=== PATIENT | male | born 1950 | race Caucasian/White ===

== ENCOUNTER 2017-01-28 15:11 | Outpatient (CLI) | payer OTHER ==
[2016-01-03 21:41] VITALS: BP 109/69
== END 2017-01-28 15:12 ==
LOC: LAB 15:11
PROVIDERS: ATTEND Nurse Practitioner Family
DX: M81.0 Age-related osteoporosis without current pathological fracture (principal)
CPT/HCPCS: 36415; 82306; 83970; 84403

== ENCOUNTER 2017-04-29 11:31 | Outpatient (CLI) | payer OTHER ==
[2016-01-03 21:41] VITALS: BP 109/69
== END 2017-04-29 11:32 ==
LOC: CARD 11:31
PROVIDERS: ATTEND Internal Medicine Cardiovascular Disease
DX: I42.9 Cardiomyopathy, unspecified (principal); Z86.79 Personal history of other diseases of the circulatory system; Z95.0 Presence of cardiac pacemaker; Z72.0 Tobacco use; J43.9 Emphysema, unspecified; Z79.899 Other long term (current) drug therapy
CPT/HCPCS: G0463

== ENCOUNTER 2017-10-24 14:08 | Emergency (ER) | payer MEDICARE, OTHER ==
--- NOTE | 2017-10-24 14:10 | ED Physician Documentation ---
General Adult - HISTORIAN Historian: patient - HPI Stated Complaint: cough x 5 days Chief Complaint: Cough/ Upper Respiratory Onset: days ago (5) Timing: still present Severity: mild Further Comments: yes (He states 5 days ago he notes nasal drainge, fever, chills, cough (productive) and fatigue . He has not taken any OTC meds . He denies any sick contacts. No edema. No other complaints) Last known Well Code/Unknown Code: Unknown - ROS CONST: fever EYES/ENT: nasal drainage CVS/RESP: shortness of breath, cough GI/: none MS/SKIN/LYMPH: none NEURO/PSYCH: denies: headache, dizziness - PAST HX Past History: hypertension, other (GERD, CAD, ) Surgeries/Procedures: none Immunizations: UTD Allergies/Adverse Reactions: Allergies Allergy/AdvReac Type Severity Reaction Status Date / Time No Known Drug Allergies Allergy Verified 01/03/16 21:08 Home Medications: Ambulatory Orders Medication Instructions Recorded Amiodarone HCl [Pacerone] 200 mg PO DAILY 01/03/16 Carvedilol [Coreg] 3.125 mg PO DAILY 01/03/16 Diclofenac Sodium [Voltaren] 50 mg PO BID 10/24/17 Lisinopril [Lisinopril] 5 mg PO DAILY 10/24/17 Omeprazole [Omeprazole] 20 mg PO DAILY 10/24/17 - SOCIAL HX Smoking History: cigarettes Alcohol Use: none Drug Use: none - FAMILY HX Family History: No - VITAL SIGNS Vital Signs: Vital Signs Temp Pulse Resp BP Pulse Ox 109/69 01/03/16 21:39 - REVIEWED ASSESSMENTS Nursing Assessment Reviewed: Yes Vitals Reviewed: Yes ED Results Lab/Radiology - Lab Results Lab Results: PA and lateral chest Clinical history: CXR, COUGH X5 DAYS, PT STATES HX OF COPD AND SMOKER Findings: Examination of the chest in PA and lateral views demonstrate some lungs to be hyperinflated but clear. Cardiac silhouette is within normal limits and the aorta is atherosclerotic. Bipolar pacemaker overlies left hemithorax. Impression: 1. Hyperinflation. 2. No active disease. Electronically signed on October 24, 2017 3:04:20 PM CDT by: Yousif Loja General Adult Physical Exam - PHYSICAL EXAM GENERAL APPEARANCE: no distress EENT: eye inspection normal, ENT inspection normal NECK: normal inspection RESPIRATORY: no resp distress, chest non-tender, wheezes CVS: reg rate & rhythm, heart sounds normal, equal pulses, no murmur ABDOMEN: soft, no distension BACK: normal inspection SKIN: warm/dry, normal color EXTREMITIES: non-tender, normal range of motion, no evidence of injury, no edema NEURO: oriented X3, CN's nml as tested, motor nml, sensation nml, mood/affect nml, cognition normal Discharge Clincal Impression: Bronchitis Referrals: Hardik Malone, [REFERRING] - 2 Days Comments: 1. Azithromycin - 250 mg (zpack) take as directed 2. Medrol Dose pack 4 mg - take as directed 3. ProAir 90 mcg Inhale 2 puffs by mouth every 4-6 hours as needed for cough 4. Increase fluids 5. rest 6. Follow up with PCP in 2-4 days 7. Return to ER for any concerns, increased shortness of air, fever, or other concerns Condition: Stable Disposition: 01 HOME, SELF-CARE Decision to Admit: NO Date of Decison to Admit: 10/24/17 Decision Time: 15:09
[2017-10-24 14:48] LABS: BASOPHILS % 0.7 (0.0-1.5); EOSINOPHILS % 3.5 % (0.0-6.8); MEAN CORPUSCULAR HEMOGLOBIN 33.6 pg (28.0-34.0); MEAN CORPUSCULAR VOLUME 103.7 fl (80.0-100.0); MONOCYTES % 6.4 % (0.0-11.0)
[2017-10-24 15:02] LABS: eGFR (African) > 60; eGFR (Non-African) > 60
[2017-10-24 15:16] VITALS: BP 110/68
--- NOTE | 2017-10-24 17:39 | Diagnostic Imaging Report ---
LUCINA ADLER [facility] [address] [facility] [address] [place], [place]. [address] Report Submission Date: October 24, 2017 3:04:20 PM CDT Patient Study Name: SARAH DOOLEY Date: October 24, 2017 2:40:11 PM CDT Modality Type: DX Gender: M Description: CHEST : 48 [facility]: [facility] Physician: LUCINA ADLER PA and lateral chest Clinical history: CXR, COUGH X5 DAYS, PT STATES HX OF COPD AND SMOKER Findings: Examination of the chest in PA and lateral views demonstrate some lungs to be hyperinflated but clear. Cardiac silhouette is within normal limits and the aorta is atherosclerotic. Bipolar pacemaker overlies left hemithorax. Impression: 1. Hyperinflation. 2. No active disease. Electronically signed on October 24, 2017 3:04:20 PM CDT by: Yousif SKELTON
== END 2017-10-24 15:15 | disposition home or self-care (01) ==
LOC: ED 14:08
DX: J40 Bronchitis, not specified as acute or chronic (principal)
CPT/HCPCS: 36415; 71046; 80053; 85025; 99284

== ENCOUNTER 2017-12-09 10:34 | Outpatient (CLI) | payer MEDICARE, OTHER | END 2017-12-09 10:36 | LOC: CARD 10:34 | PROVIDERS: ATTEND Internal Medicine Cardiovascular Disease | DX: I42.9 Cardiomyopathy, unspecified (principal); I48.91 Unspecified atrial fibrillation; Z95.0 Presence of cardiac pacemaker; Z72.0 Tobacco use; J43.9 Emphysema, unspecified; Z79.899 Other long term (current) drug therapy; Z86.79 Personal history of other diseases of the circulatory system | CPT/HCPCS: G0463 ==

== ENCOUNTER 2018-02-24 13:53 | Outpatient (CLI) | payer MEDICARE, OTHER | END 2018-02-24 13:55 | LOC: CARD 13:53 | PROVIDERS: ATTEND Internal Medicine Cardiovascular Disease | DX: I42.9 Cardiomyopathy, unspecified (principal); Z86.79 Personal history of other diseases of the circulatory system; Z95.0 Presence of cardiac pacemaker; Z72.0 Tobacco use; J43.9 Emphysema, unspecified | CPT/HCPCS: G0463 ==

== ENCOUNTER 2018-04-24 23:13 | Inpatient (IN) | payer MEDICARE, OTHER ==
[2018-04-24] MEDS ORDERED: IPRATROPIUM/ALBUTEROL SULFATE 3 ML AMPUL.NEB NEB ONE (23:25)
--- NOTE | 2018-04-24 23:32 | ED Physician Documentation ---
Dyspnea - HISTORIAN Historian: patient - HPI Stated Complaint: soa Chief Complaint: Dyspnea Additional Information: Patient presents to ED with a 2 day history of increasing shortness of breath and cough with yellow/green sputum production. Patient wears oxygen (2 liters) at night. He has not had to wear his oxygen during the day. Patient reports some substernal chest pain when he gets really short of breath. He has been u sing his inhalers more than usual with little relief. Denies fever, chills, night sweats or syncope. Upon arrival to ED SaO2 is 86% on room air. Patient has a history of bradycardia (s/p pacer), cardiomyopathy LVEF 25%, CAD, COPD, cigarette use. Patient reports having Cardiac cath about 2 weeks ago showing nonoccluisve CAD. Onset: days ago (2) Duration: continues in ED Initiating Event: upper respiratory illness Severity: moderate Exacerbated By: coughing Associated Symptoms: chest pain, productive cough. denies: chills, fever, calf pain - ROS CONST: no problems EYES/ENT: denies: sore throat, nasal drainage GI/: denies: abdominal pain, vomiting, nausea, diarrhea NEURO/PSYCH: denies: headache MS/SKIN/LYMPH: denies: muscle aches - PAST HX Lung Disease: COPD Cardiac Disease: CHF (LVEF 25%), CAD, other (pacemaker) PE Risk Factors: hypertension. denies: hx of PE Surgeries/Procedures: denies: prior intubation Allergies/Adverse Reactions: Allergies Allergy/AdvReac Type Severity Reaction Status Date / Time No Known Drug Allergies Allergy Verified 04/24/18 23:37 Home Medications: Ambulatory Orders Medication Instructions Recorded Carvedilol [Coreg] 3.125 mg PO DAILY 01/03/16 Diclofenac Sodium [Voltaren] 50 mg PO BID 10/24/17 Lisinopril 5 mg PO DAILY 10/24/17 Omeprazole 20 mg PO DAILY 10/24/17 Ipratropium/Albuterol Sulfate 3 ml IH TID #90 ampul.neb 04/25/18 [Duoneb] Nebulizer [Aeroeclipse II] 1 each MC DAILY #1 each 04/25/18 - SOCIAL HX Smoking History: cigarettes, less than 1 pack/day Alcohol Use: none Drug Use: none - FAMILY HX Family History: none - VITAL SIGNS Vital Signs: Vital Signs Temp Pulse Resp BP Pulse Ox 110/68 10/24/17 15:15 - REVIEWED ASSESSMENTS Nursing Assessment Reviewed: Yes Vitals Reviewed: Yes Progress - Progress Progress: 015 Discussed CXR results and elevated WBC with patient. Patient agrees to admission. - EKG/XRAY/CT Comments: sinus rhythm 99 bpm left bbb ED Results Lab/Radiology - Radiology Radiology Impressions: Portable chest Clinical history: Shortness of breath for 2 days. Findings: Examination of the chest in single portable AP view with comparison to examination of 10/24/2017 demonstrates lungs to be hyperinflated but clear. Bipolar pacemaker overlies left hemithorax. Central pulmonary arteries are prominent suggesting pulmonary arterial hypertension. Impression: 1. Emphysema. 2. Prominence of central pulmonary arteries suggesting pulmonary arterial hypertension. Electronically signed on Apr 24, 2018 11:58:33 PM CONSERVATION EDUCATOR by: Yousif Loja My interpretation is bilateral pneumonia, especially with elevated WBC and copious green sputum production. - Orders Orders: ED Orders Category Date Time Status Place IV Lock 1T Care 04/24/18 23:24 Ordered CHEST 1VIEW [RAD] Stat Exams 04/24/18 Ordered CBC/PLATELET/DIFF Routine Lab 04/24/18 Ordered CMP Routine Lab 04/24/18 Ordered NT-proBNP Stat Lab 04/24/18 Ordered TROPONIN I (cTnI) Stat Lab 04/24/18 Ordered Ipratropium/Albuterol Sulfate [Duoneb] Med 04/24/18 23:25 Once 3 ml NEB NOW ONE EKG WITH COMPARISON Stat Ther 04/24/18 Ordered Dyspnea Physical Exam - EXAM General Appearance: no acute distress, alert EENT: JULIAN Neck: No: lymphadenopathy Respiratory: no resp. distress, speaks full sentences, other (markedly diminished breath sounds bilaterally) CVS: reg. rate & rhythm, no murmur Abdomen: non-tender. No: tenderness Skin: color nml, no rash Extremities: non-tender, no edema Neuro/Psych: oriented x3, motor nml Discharge Clincal Impression: Acute respiratory failure with hypoxia Bilateral pneumonia Qualifiers: Pneumonia type: due to unspecified organism Lung location: lower lobe of lung Qualified Code(s): J18.1 - Lobar pneumonia, unspecified organism Prescriptions: Ipratropium/Albuterol Sulfate [Duoneb] 3 ml IH TID #90 ampul.neb Nebulizer [Aeroeclipse II] 1 each MC DAILY #1 each Referrals: Neeta Carr PRN [Primary Care Provider] - 2 Days Condition: Stable Disposition: ADMITTED INPATIENT Decision to Admit: [id number] Date of Decison to Admit: 04/25/18 Decision Time: 00:35
[2018-04-24] MEDS ORDERED: methylPREDNISolone SOD SUCC 125 MG/2 ML VIAL IVP ONE (23:37)
[2018-04-24] MEDS ORDERED: cefTRIAXone SODIUM 1 GM in 0.9 % SODIUM CHLORIDE 100 ML IV ONE (23:50)
[2018-04-25 00:03] LABS: MEAN CORPUSCULAR HEMOGLOBIN 34.2 pg (28.0-34.0)
[2018-04-25 00:04] LABS: BASOPHILS % 0.8 (0.0-1.5); EOSINOPHILS % 2.1 % (0.0-6.8); MONOCYTES % 9.2 % (0.0-11.0); NEUTROPHILS # 13.8 # k/uL (1.4-7.7)
[2018-04-25 00:05] LABS: eGFR (Non-African) > 60
[2018-04-25] MEDS ORDERED: cefTRIAXone SODIUM 1 GM VIAL ONE ×2 (00:20→20:42)
[2018-04-25] MEDS ORDERED: 0.9 % SODIUM CHLORIDE 100 ML IV ONE (00:20)
--- NOTE | 2018-04-25 00:27 | Diagnostic Imaging Report ---
CRISTINA ALVAREZ [facility] [address] [facility] [address] [place] [address]. [id number] Report Submission Date: Apr 24, 2018 11:58:33 PM ASSISTANT DEAN Patient Study Name: SARAH DOOLEY Date: Apr 24, 2018 11:33:59 PM ASSISTANT DEAN Modality Type: DX Gender: M Description: CHEST : 48 Institution: [facility] Physician: CRISTINA ALVAREZ Portable chest Clinical history: Shortness of breath for 2 days. Findings: Examination of the chest in single portable AP view with comparison to examination of 10/24/2017 demonstrates lungs to be hyperinflated but clear. Bipolar pacemaker overlies left hemithorax. Central pulmonary arteries are prominent suggesting pulmonary arterial hypertension. Impression: 1. Emphysema. 2. Prominence of central pulmonary arteries suggesting pulmonary arterial hypertension. Electronically signed on Apr 24, 2018 11:58:33 PM ASSISTANT DEAN by: Yousif SKELTON
[2018-04-25] MEDS ORDERED: HYDROcodone /APAP 5/325 1 EACH TABLET PO PRN (00:57)
[2018-04-25] MEDS ORDERED: ONDANSETRON HCL 4 MG TAB.RAPDIS PO PRN (00:59)
[2018-04-25] MEDS ORDERED: cefTRIAXone SODIUM 1 GM in 0.9 % SODIUM CHLORIDE 50 ML IV SCH (01:00)
[2018-04-25] MEDS ORDERED: MAG HYDROX/ALUMINUM HYD/SIMETH 30 ML UDC PO PRN (01:01)
[2018-04-25] MEDS ORDERED: DOCUSATE SODIUM 100 MG CAPSULE PO PRN (01:03)
[2018-04-25] MEDS ORDERED: ENOXAPARIN SODIUM 30 MG/0.3 ML DISP.SYRIN SQ ONE ×2 (02:24→20:41)
[2018-04-25] MEDS ORDERED: AZITHROMYCIN 250 MG TABLET PO ONE ×2 (02:24→15:59)
[2018-04-25] MEDS: ENOXAPARIN SODIUM 30 MG/0.3 ML DISP.SYRIN SQ SCH (02:29)
[2018-04-25] MEDS: AZITHROMYCIN 250 MG TABLET PO SCH ×2 (02:29→16:02)
[2018-04-25 04:03] VITALS: BMI 25.4
[2018-04-25] MEDS ORDERED: methylPREDNISolone SOD SUCC 40 MG/ML VIAL IVP SCH (05:00)
[2018-04-25] MEDS ORDERED: PANTOPRAZOLE SODIUM 40 MG TABLET.DR ONE ×2 (06:19→20:41)
[2018-04-25] MEDS: PANTOPRAZOLE SODIUM 40 MG TABLET.DR PO SCH (06:21)
[2018-04-25] MEDS ORDERED: IPRATROPIUM/ALBUTEROL SULFATE 3 ML AMPUL.NEB NEB ONE ×3 (07:38→20:42)
[2018-04-25] MEDS ORDERED: methylPREDNISolone SOD SUCC 40 MG/ML VIAL ONE ×3 (07:38→20:42)
[2018-04-25] MEDS ORDERED: CARVEDILOL 6.25 MG TABLET PO ONE ×2 (07:38→20:42)
[2018-04-25] MEDS ORDERED: LISINOPRIL 5 MG TABLET ONE (07:38)
--- NOTE | 2018-04-25 07:56 | History and Physical Report ---
History of Present Illnes - History of Present Illness Reason for Visit: dyspnea History of Present Illness: 67-year-old white male with a known history of COPD and congestive heart failure. Patient states over the last 45 days he is been having increasing shortness of breath dyspnea. Patient is normally on oxygen at nighttime. Patient had started to have to uses oxygen more frequently. Patient developed a productive cough up some green phlegm. No home offices was noted. Patient is having increase dyspnea with exertion subsequently came to the emergency room for evaluation. In the emergency room patient was found to have bilateral pneumonia with an elevated white count of 17,000. Patient was noted to be hypoxic with and SaO2 in the mid 80s. Patient stated he is had pneumonia on numerous occasions previously.Due to his comorbidities of congestive heart failure and is COPD patient was subsequently admitted to the hospital for further care and evaluation. - Past Medical History Cardiac: CHF. denies: HTN Pulmonary: COPD - Past Surgical History Past Surgical History: Other (right hand surgeries due to trauma, pacemaker placement) - Past Family History Mother Family History: CVA, (70s) - Past Social History Smoke: # pack years (90), <1 pack per day (2-4 cirgarette/d) Alcohol: Occassional (shot several times a week) Drugs: None Lives: Alone - Health Maintenance Health Maintenance: Pneumococcal Vaccine. denies: Influenza Vaccine Influenza Vaccine: No Pneumonia Vaccine: Yes Resuscitation Status: Resusciation Status Resuscitation Status Full Code Review of Systems - Review of Systems Constitutional: Fever, Chills, Sweats Eyes: negative: pain, vision change ENT: negative: Ear Pain, Ear Discharge, Nose Pain, Nose Discharge, Nose Congestion, Throat Swelling Respiratory: Shortness of Breath, SOB with Excertion, Sputum (green). negative: Hemoptysis Cardiovascular: negative: Chest Pain, Palpitations, Orthopnea, Edema Gastrointestinal: negative: Nausea, Vomiting, Abdominal Pain, Diarrhea, Constipation, Melena, Hematochezia Genitourinary: negative: Dysuria, Frequency, Hematuria Musculoskeletal: negative: Neck Pain, Shoulder Pain, Back Pain Skin: negative: Rash Neurological: negative: Weakness, Numbness, Incoordination, Confusion - Medications/Allergies Allergies/Adverse Reactions: Allergies Allergy/AdvReac Type Severity Reaction Status Date / Time No Known Drug Allergies Allergy Verified 04/24/18 23:37 Current Inpatient Medications: Current Inpatient Medications Albuterol/Ipratropium (Duoneb) 3 ml NEB QID [facility] Azithromycin (Zithromax) 500 mg PO DAILY [facility] Stop: 05/09/18 00:52 Last Admin: 04/25/18 02:29 Dose: 500 mg Carvedilol (Coreg) 3.15 mg PO BID [facility] Docusate Sodium (Colace) 100 mg PO DAILY PRN PRN Reason: Constipation Enoxaparin Sodium (Lovenox) 30 mg SQ QD [facility] Stop: 05/08/18 01:01 Last Admin: 04/25/18 02:29 Dose: 30 mg Ceftriaxone Sodium 1 gm/ (Sodium Chloride) 50 mls @ 100 mls/hr IV Q24H [facility] Lisinopril (Prinivil) 5 mg PO DAILY [facility] Methylprednisolone Sodium Succinate (Solu-Medrol) 60 mg IVP Q8 [facility] Ondansetron HCl (Zofran Odt) 4 mg PO Q8H PRN PRN Reason: Nausea / Vomiting Pantoprazole Sodium (Protonix) 40 mg PO 0700 [facility] Last Admin: 04/25/18 06:21 Dose: 40 mg Sodium Chloride (Normal Saline Flush) 3 ml IV BID [facility] Exam - Exam Vital Signs: Vital Signs (72 hours) 04/24/18 04/25/18 04/25/18 23:13 00:48 01:07 Temperature 98.5 F 100.2 F H Pulse Rate [ 88 100 H 102 H Pulse ox] Respiratory 22 20 20 Rate Blood Pressure 115/63 133/72 106/59 [Left Arm] Blood Pressure [Right Arm] O2 Sat by Pulse 86 L 94 Oximetry 04/25/18 04/25/18 02:00 06:00 Temperature 97.4 F L 97.5 F L Pulse Rate [ 100 H 78 Pulse ox] Respiratory 20 20 Rate Blood Pressure 133/72 110/62 [Left Arm] Blood Pressure 110/68 [Right Arm] O2 Sat by Pulse 94 97 Oximetry General: Alert, Oriented to Person, Oriented to Place, Oriented to Time, Cooperative HEENT: Atraumatic, PERRLA, EOMI, Mouth Mucous membr. moist/[place], Nose Mucous membr. moist/[place], Hearing Grossly Normal Neck: Normal Range of Motion Carotids: WNL Lungs: Normal air movement, Speaks full Sentences, Respiratory Distress, Rales (right posterior) Cardiovascular: Regular rate, Normal S1, Normal S2, No murmurs Abdomen: Normal bowel sounds, Soft, No tenderness, No hepatospenomegaly, No masses Integumentary: Normal, [place], Warm, Dry Extremities: No clubbing, No cyanosis, No edema, Normal pulses, No tenderness/swelling Neurological: Normal gait, Normal speech, Strength Equal Bilat, Normal tone, Sensation intact, Cranial nerves 3-12 NL, Reflexes 2+ Psych/Mental Status: Mental status NL, Mood NL, Appropriate Affect, Intact Judgment - Laboratory Results Laboratory Results: Laboratory Results 04/24/18 04/24/18 04/24/18 23:35 23:35 23:35 WBC 17.20 H RBC 4.07 Hgb 13.9 Hct 40.8 MCV 100.0 MCH 34.2 H MCHC 34.1 RDW 13.2 Plt Count 146 Neut % (Auto) 80.5 H Lymph % (Auto) 7.4 L [place] % (Auto) 9.2 Eos % (Auto) 2.1 Baso % (Auto) 0.8 Neut # (Auto) 13.8 H Lymph # (Auto) 1.3 [place] # (Auto) 1.6 H Eos # (Auto) 0.4 Baso # (Auto) 0.1 Sodium 142 Potassium 3.9 Chloride 106 Carbon Dioxide 28 BUN 22 H Creatinine 0.70 Est GFR ( Amer) > 60 Est GFR (Non-Af Amer) > 60 Glucose 112 H Calcium 8.3 L Total Bilirubin 0.8 AST 23 ALT 41 Alkaline Phosphatase 86 Troponin I < 0.03 L NT-Pro-B Natriuret Pep 224.5 H Total Protein 6.7 Albumin 3.6 Assessment/Plan - Assessment/Plan (1) Bilateral pneumonia Status: Acute Qualifiers: Pneumonia type: due to unspecified organism Lung location: lower lobe of lung Qualified Code(s): J18.1 - Lobar pneumonia, unspecified organism (2) COPD exacerbation Status: Chronic (3) CHF (congestive heart failure) Status: Chronic Qualifiers: Heart failure type: unspecified Heart failure chronicity: chronic Qualified Code(s): I50.9 - Heart failure, unspecified VTE Assessment - RISK FACTOR SCORE VTE RISK FACTOR SCORES: AGE OVER 60 YEARS, ACUTE RESPIRATORY FAILURE/SEVERE COPD, ANTICIPATED BED CONFINEMENT OR IMMOBILIZATION > 24 HOURS - RISK VTE HIGH RISK: SCORE OF 3-4 (RISK PROXIMAL DVT 4-8%) PROPHYLAXIS NEEDED
[2018-04-25] MEDS: methylPREDNISolone SOD SUCC 40 MG/ML VIAL IVP SCH ×3 (08:10→20:53)
[2018-04-25] MEDS: CARVEDILOL 6.25 MG TABLET PO SCH ×2 (08:16→20:55)
[2018-04-25] MEDS: LISINOPRIL 5 MG TABLET PO SCH (08:17)
[2018-04-25] MEDS: SALINE FLUSH 10 ML DISP.SYRIN IV SCH ×2 (08:20→20:55)
[2018-04-25] MEDS: IPRATROPIUM/ALBUTEROL SULFATE 3 ML AMPUL.NEB NEB SCH ×4 (08:23→21:22)
--- NOTE | 2018-04-25 08:42 | Diagnostic Imaging Report ---
CRISTINA ALVAREZ [facility] [address] [facility] [address] [address] Report Submission Date: Apr 25, 2018 7:21:15 AM HAND SCREEN PRINTER Patient Study Name: SARAH DOOLEY Date: Apr 25, 2018 6:50:02 AM HAND SCREEN PRINTER Modality Type: DX Gender: M Description: CHEST : 48 Institution: [facility] Physician: CRISTINA ALVAREZ PA and lateral chest CLINICAL HISTORY: Shortness of breath for 2 days. FINDINGS: Examination of the chest in PA and lateral views with comparison to examination from the previous day demonstrates left lower lobe infiltrate in the retrocardiac region. Cardiovascular and mediastinal silhouettes are stable. Bipolar pacemaker overlies the left hemithorax. Monitor leads superimpose the chest. IMPRESSION: Retrocardiac infiltrate the left base seen posteriorly on the lateral view. Aortic atherosclerosis and mild cardiomegaly. Prominence of the central pulmonary arteries. Electronically signed on Apr 25, 2018 7:21:15 AM HAND SCREEN PRINTER by: Yousif SKELTON
[2018-04-25] MEDS ORDERED: 0.9 % SODIUM CHLORIDE 50 ML IV ONE (20:43)
[2018-04-25 23:36] LABS: MEAN CORPUSCULAR HEMOGLOBIN 33.3 pg (28.0-34.0)
[2018-04-25 23:37] LABS: BASOPHILS % 0.5 (0.0-1.5); EOSINOPHILS % 1.2 % (0.0-6.8); MONOCYTES % 5.4 % (0.0-11.0); NEUTROPHILS # 16.6 # k/uL (1.4-7.7)
[2018-04-25 23:57] LABS: eGFR (Non-African) > 60
[2018-04-26] MEDS: cefTRIAXone SODIUM 1 GM in 0.9 % SODIUM CHLORIDE 50 ML IV SCH ×2 (01:31→08:58)
[2018-04-26] MEDS: ENOXAPARIN SODIUM 30 MG/0.3 ML DISP.SYRIN SQ SCH (01:32)
[2018-04-26] MEDS: PANTOPRAZOLE SODIUM 40 MG TABLET.DR PO SCH (05:46)
[2018-04-26] MEDS ORDERED: methylPREDNISolone SOD SUCC 40 MG/ML VIAL ONE (05:49)
[2018-04-26] MEDS: methylPREDNISolone SOD SUCC 40 MG/ML VIAL IVP SCH (05:52)
[2018-04-26 07:50] LABS: MEAN CORPUSCULAR HEMOGLOBIN 33.9 pg (28.0-34.0)
[2018-04-26 07:52] LABS: MONOCYTES % 0 % (0-11); SEGMENTED NEUTROPHILS % 73 % (39-79)
[2018-04-26] MEDS ORDERED: CARVEDILOL 6.25 MG TABLET PO ONE (07:52)
[2018-04-26] MEDS ORDERED: LISINOPRIL 2.5 MG TABLET PO ONE (07:52)
[2018-04-26] MEDS ORDERED: IPRATROPIUM/ALBUTEROL SULFATE 3 ML AMPUL.NEB NEB ONE (07:52)
[2018-04-26] MEDS ORDERED: AZITHROMYCIN 250 MG TABLET PO ONE (07:52)
--- NOTE | 2018-04-26 08:39 | Discharge Summary ---
Discharge Summary - Discharge Sumary Home Medications: Ambulatory Orders Medication Instructions Recorded Carvedilol [Coreg] 3.125 mg PO DAILY 01/03/16 Diclofenac Sodium [Voltaren] 50 mg PO BID 10/24/17 Lisinopril 5 mg PO DAILY 10/24/17 Omeprazole 20 mg PO DAILY 10/24/17 Ipratropium/Albuterol Sulfate 3 ml IH TID #90 ampul.neb 04/25/18 [Duoneb] Nebulizer [Aeroeclipse II] 1 each MC DAILY #1 each 04/25/18 Azithromycin 250 mg PO D #4 tablet 04/26/18 Cefdinir 300 mg PO BID #14 capsule 04/26/18 Allergies/Adverse Reactions: Allergies Allergy/AdvReac Type Severity Reaction Status Date / Time No Known Drug Allergies Allergy Verified 04/24/18 23:37 Patient Problems: Current Active Problems Problem Status Onset Acute respiratory failure with hypoxia Acute Bilateral pneumonia Acute COPD exacerbation Chronic
[2018-04-26] MEDS ORDERED: 0.9 % SODIUM CHLORIDE 50 ML IV ONE (08:42)
[2018-04-26] MEDS ORDERED: cefTRIAXone SODIUM 1 GM VIAL ONE (08:42)
[2018-04-26] MEDS: LISINOPRIL 5 MG TABLET PO SCH (08:46)
[2018-04-26] MEDS: SALINE FLUSH 10 ML DISP.SYRIN IV SCH (08:46)
[2018-04-26] MEDS: AZITHROMYCIN 250 MG TABLET PO SCH (08:46)
[2018-04-26] MEDS: CARVEDILOL 6.25 MG TABLET PO SCH (08:47)
[2018-04-26 10:43] VITALS: BP 127/65
--- NOTE | 2018-06-02 21:33 | Discharge Summary ---
Discharge Summary - Discharge Sumary History of Present Illness: 67-year-old white male with a known history of COPD and congestive heart failure. Patient states over the last 45 days he is been having increasing shortness of breath dyspnea. Patient is normally on oxygen at nighttime. Patient had started to have to uses oxygen more frequently. Patient developed a productive cough up some green phlegm. No home offices was noted. Patient is having increase dyspnea with exertion subsequently came to the emergency room for evaluation. In the emergency room patient was found to have bilateral pneumonia with an elevated white count of 17,000. Patient was noted to be hypoxic with and SaO2 in the mid 80s. Patient stated he is had pneumonia on numerous occasions previously.Due to his comorbidities of congestive heart failure and is COPD patient was subsequently admitted to the hospital for further care and evaluation. Home Medications: Ambulatory Orders Medication Instructions Recorded Carvedilol [Coreg] 3.125 mg PO DAILY 01/03/16 Diclofenac Sodium [Voltaren] 50 mg PO BID 10/24/17 Lisinopril 5 mg PO DAILY 10/24/17 Omeprazole 20 mg PO DAILY 10/24/17 Ipratropium/Albuterol Sulfate 3 ml IH TID #90 ampul.neb 04/25/18 [Duoneb] Nebulizer [Aeroeclipse II] 1 each MC DAILY #1 each 04/25/18 Azithromycin 250 mg PO D #4 tablet 04/26/18 Cefdinir 300 mg PO BID #14 capsule 04/26/18 predniSONE [Berenice] 5 mg PO DIRECTED #72 tablet. 04/26/18 Allergies/Adverse Reactions: Allergies Allergy/AdvReac Type Severity Reaction Status Date / Time No Known Drug Allergies Allergy Verified 04/24/18 23:37 Discharge Summary: Patient was admitted to the hospital started on methylprednisolone on a tapering does. At the time to discharge patient was transitioned over to PO prednisone. Patient was felt to have bilateral lower lobe pneumonia. Patient was started on ceftriaxone and azithromycin ID. Patient was given DuoNeb treatments. Patient was reported with oxygen therapy to maintain and SaO2 greater than 92%. Patient pulmonary status remains stable. Patient ability to tolerate ambulation and exertion improved during his hospitalization. At the time to discharge was felt that the patient was stable enough that he could be discharged and followed up on an outpatient basis. Patient was discharged in stable condition. - Final Diagnosis (1) Bilateral pneumonia Problems: Improved (2) COPD exacerbation Problems: Improved (3) CHF (congestive heart failure) Problems: stable
== END 2018-04-26 10:08 | disposition home or self-care (01) | DRG 193 ==
LOC: ED 23:13 → SOUTH 04-25 00:44
PROVIDERS: ADMIT Family Medicine; ATTEND Family Medicine
DX: J18.1 Lobar pneumonia, unspecified organism (principal); J80 Acute respiratory distress syndrome; R09.02 Hypoxemia; J43.9 Emphysema, unspecified; F17.210 Nicotine dependence, cigarettes, uncomplicated; I50.9 Heart failure, unspecified
CPT/HCPCS: 71045; 71046; 80048; 80053; 82550; 82553; 83880; 84484; 85025; 87040; 93005; J0696; J1030; J1650; J2930; 94640; 96365; 99222; 99238; 99284; 99285; J2920; S1016

== ENCOUNTER 2018-09-11 12:42 | Outpatient (CLI) | payer MEDICARE, OTHER ==
[2018-09-11 12:57] LABS: MEAN CORPUSCULAR HEMOGLOBIN 32.1 pg (28.0-34.0)
[2018-09-11 12:58] LABS: BASOPHILS % 1.5 % (0.0-1.5); EOSINOPHILS % 3.6 % (0.0-6.8); MONOCYTES % 7.5 % (0.0-11.0); NEUTROPHILS # 4.5 # k/uL (1.4-7.7)
[2018-09-11 13:19] LABS: eGFR (Non-African) > 60
== END 2018-09-11 13:00 ==
LOC: LAB 12:42
PROVIDERS: ATTEND Nurse Practitioner Family
DX: R71.0 Precipitous drop in hematocrit (principal)
CPT/HCPCS: 36415; 80053; 85025

== ENCOUNTER 2019-02-23 13:20 | Emergency (ER) | payer MEDICARE, OTHER ==
--- NOTE | 2019-02-23 13:45 | ED Physician Documentation ---
Upper Respiratory Symptoms - HISTORIAN Historian: patient - HPI Chief Complaint: Cough/ Upper Respiratory Additional Information: Patient is a 68 year old male who presents to the ER with cough/congestion that started this morning. He states, because of his COPD he is quick to get pneumonia. He denies any fever but had some chills this morning. Cough is productive. Runny nose and sinus pressure. Onset: hours Duration: sudden-Onset Context: denies: recent foreign travel, multiple patients Severity: moderate Associated Symptoms: chills, runny nose, sinus pain, productive cough Worsened by Deep Breath: No Further Comments: no - ROS CONST/EYES: denies: eye redness, eye itching CVS/RESP: denies: shortness of breath LYMPH: denies: swollen glands GI/: none NEURO/PSYCH: denies: dizziness MS/SKIN: denies: muscle aches - PAST HX Lung Disease: COPD PE Risk Factors: hypertension Other History: cardiac disease Immunizations: UTD Allergies/Adverse Reactions: Allergies Allergy/AdvReac Type Severity Reaction Status Date / Time No Known Drug Allergies Allergy Verified 02/23/19 13:37 Home Medications: Ambulatory Orders Medication Instructions Recorded Carvedilol [Coreg] 3.125 mg PO DAILY 01/03/16 Diclofenac Sodium [Voltaren] 50 mg PO BID 10/24/17 Lisinopril 5 mg PO DAILY 10/24/17 Omeprazole 20 mg PO DAILY 10/24/17 Nebulizer [Aeroeclipse II] 1 each MC DAILY #1 each 04/25/18 Azithromycin [Zithromax] 250 mg PO DAILY #6 tablet 02/23/19 Bupropion HCl [Wellbutrin Xl] 150 mg PO DAILY 02/23/19 DULoxetine HCL [Cymbalta] 60 mg pe PO DAILY 02/23/19 Omeprazole 20 mg PO DAILY 02/23/19 Umeclidinium Vaughn [Incruse 1 puff INH DAILY 02/23/19 Ellipta] predniSONE [Deltasone] 40 mg PO DAILY #10 tablet 02/23/19 - SOCIAL HX Smoking History: cigarettes Alcohol Use: none Drug Use: none - FAMILY HX Family History: none - VITAL SIGNS Vital Signs: Vital Signs Temp Pulse Resp BP Pulse Ox 98.1 F 66 24 127/65 97 02/23/19 14:35 02/23/19 14:35 02/23/19 14:35 02/23/19 14:35 02/23/19 14:35 - REVIEWED ASSESSMENTS Nursing Assessment Reviewed: Yes Vitals Reviewed: Yes ED Results Lab/Radiology - Radiology Radiology Impressions: Exam: Chest two views. History: Cough and congestion. The examination is compared to study dated April 25, 2018. A cardiac pacemaker remains in position over the left hemithorax with leads in the anticipated right atrium and right ventricle. Lung thomas are well aerated without osman consolidation or effusion. Heart and mediastinal contour are normal. 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 Impression: No osman consolidation or effusion. Electronically signed on Feb 23, 2019 2:18:24 PM CDT by: Anthony Barahona - Orders Orders: ED Orders Category Date Time Status CHEST 2VIEW [RAD] Stat Exams 02/23/19 Taken Upper Respiratory Symptoms - EXAM General Appearance: no acute distress, alert EENT: eyes nml inspection, nml ENT inspection, lids & conjunct. nml, PERRL, ear nml, pain over sinuses, nose nml, airway nml Neck: normal inspection Respiratory: speaks full sentences, wheezes Abdomen: non-tender CVS: heart sounds normal, equal pulses Skin: color nml, no rash, warm,dry Extremities: non-tender, normal range of motion Neuro/Psych: oriented x3, neuro intact, mood/affect nml Discharge Clincal Impression: COPD exacerbation, Upper respiratory infection Prescriptions: Azithromycin [Zithromax] 250 mg PO DAILY #6 tablet predniSONE [Deltasone] 40 mg PO DAILY #10 tablet Referrals: Neeta Carr, PRN [Primary Care Provider] - 2 Days Additional Instructions: Take Zithromax as directed Prednisone 40mg daily for 5 days Increase water intake Follow up with PCP in one week for re-evaluation Condition: Good Disposition: 01 HOME, SELF-CARE Decision to Admit: NO Decision Time: 15:30
[2019-02-23 14:36] VITALS: BP 127/65
--- NOTE | 2019-02-23 15:45 | Diagnostic Imaging Report ---
[address] [facility] [address] [facility] [place] [facility] [address], [place]. [address] Report Submission Date: Feb 23, 2019 2:18:24 PM CDT Patient Study Name: SARAH DOOLEY Date: Feb 23, 2019 1:59:30 PM CDT Modality Type: DX Gender: M Description: CHEST 2VIEW : 48 Institution: [facility] Physician: [address] ED Exam: Chest two views. History: Cough and congestion. The examination is compared to study dated April 25, 2018. A cardiac pacemaker remains in position over the left hemithorax with leads in the anticipated right atrium and right ventricle. Lung thomas are well aerated without osman consolidation or effusion. Heart and mediastinal contour are normal. 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 Impression: No osman consolidation or effusion. Electronically signed on Feb 23, 2019 2:18:24 PM CDT by: Anthony SKELTON
== END 2019-02-23 14:32 | disposition home or self-care (01) ==
LOC: ED 13:20
DX: J44.9 Chronic obstructive pulmonary disease, unspecified (principal); J06.9 Acute upper respiratory infection, unspecified; F17.210 Nicotine dependence, cigarettes, uncomplicated
CPT/HCPCS: 71046; 99282; 99284